=== PATIENT | male | born 1985 | race Caucasian/White ===

== ENCOUNTER 2020-05-21 16:44 | Emergency (ER) | payer OTHER ==
[~2020-05-21] VITALS: Ht 188 cm; Wt 96.2 kg
[2020-05-21 17:02] VITALS: Ht 188 cm; Wt 96.2 kg
[2020-05-21 18:18] VITALS: BP 109/80
== END 2020-05-21 18:18 | disposition home or self-care (01) ==
LOC: ED 16:44
DX: R07.89 Other chest pain (principal); J45.909 Unspecified asthma, uncomplicated; M54.6 Pain in thoracic spine; Z98.890 Other specified postprocedural states
CPT/HCPCS: 83880; Q0092